=== PATIENT | male | born 1955 | race Caucasian/White ===

== ENCOUNTER 2016-10-20 13:49 | Outpatient (CLI) ==
[2013-05-16 16:23] VITALS: BMI 34.9
--- NOTE | 2016-10-20 15:05 | DI ---
EXAM: Four views of the cervical spine. History: Neck pain. Findings: No acute fracture or subluxation. No prevertebral soft tissue swelling. Mild multilevel degenerative disc space narrowing. Predental space is not widened. Prominent heart size is seen. Impression: No acute osseous abnormality. Mild degenerative disc disease.
== END 2016-10-20 13:50 | disposition home or self-care (01) ==
LOC: RAD 13:49
PROVIDERS: ATTEND Internal Medicine
DX: M54.2 Cervicalgia (principal)

== ENCOUNTER 2016-11-16 09:00 | Outpatient (RCR) ==
[2013-05-16 16:23] VITALS: BMI 34.9
--- NOTE | 2016-11-05 09:44 | RS.OPPTEV2 ---
Date of Note: 11/05/16 Visit #: 1 Date of Evaluation: 11/05/16 Payer Source: Insurance Date of Onset/Injury/Change in Status: 10/14/16 Surgery Performed?: No Treatment Diagnosis: Cervical radiculitis History of Condition/Mechanism of Injury:: Mr. Romero reports he has had several neck injuries in the past that has caused neck pain intermittently but it always resolved. He does notice that lifitng brings on neck pain. Then about a month ago he lifted a 5 gallon bucket of salt and felt pain in the lower cervical spine. This did not resolve so he sought medical intervention and has had several rounds of steroids. He has been on anti-inflammatories and has had steroid shots but that did not clear up the problem. He had x-rays that show mild degeneration. He has been in healthcare corporate account director who told him he had 4 bony osteophytes and a pinched nerve. The pain radiates to the right shoulder and distally into the right elbow. He is having constant pain now but the pain intensity is decreased by hydrocodine and ibuprofen. Prior Level of Function.....Patient was independent with: ADL's, Self Care, Work /Vocation, Caregiving, Ambulation/Mobility, Community Integration/Access Functional Limitations: Sleep, Lifting, Carrying, Community Access/Integration Treatment Side (optional): Right Medical History Medical History: Diabetes, Arthritis, Other Medical History Comments:: hypercholesterolemia Surgical History: Cholecystectomy Smoking Status: Never smoker Pain Assessment - Pain Description Pain Location: Right cervical pain, that radiates into the right upper trap and arm to the elbow. Pain Description: Burning, Sharp Pain Description: Constant Current Pain Intensity: 2/10 Worst Pain Intensity: 10/10 Functional Outcome Measure Neck Disability Index: 15 - G Codes & Severity Modifier G Codes & Modifier: NA Source of G Code score: NA Observation - Observation Posture: Rounded Shoulders Handedness: Right - ROM Cervical Extension: 5 (%) Cervical Left Lateral Flexion: 10 (%) Cervical Spine Range of Motion Limitations: Soft Tissue Tightness, Pain - Strength Cervical Extension: 5 Normal Cervical Flexion: 4+ Good + - Special Tests Foraminal Distraction: Relieves symptoms. Shoulder ROM: Bilaterally WFL's Shoulder Muscle Strength: Left WFL's - Right Shoulder Strength Right Shoulder Flexion: 4 Good Right Shoulder Abduction: 4 Good () Palpation Palpation Findings: Tenderness, Trigger Point (Significant muscle tightness throughout his upper body. Subscapularis TP present on R.) Sensation - Sensation Right Lower Extremity: Impaired Sensation Description: Burning - Traction Treatment Method: Manual Patient Position: Supine Amount of Force Applied: Mod Hold Time: 20 sec Duration of treatment: 10 minutes Traction Treatment Comment: Elimination of pain manual traction. Interventions - Exercise/Activities/Manual Therapy Exercises/Activities: NA Manual Therapy: A-O release, manual traction, right subscapularis trigger point mobilization, right scapular mobilization to improve movement and facilitate myofascial release. Total minutes of Manual Therapy: 25 minutes - Charges Total Direct Minutes: 25 Total Treatment Time: 65 Procedures billed for this date of service:: PT Aydeal (Med) & manual therapy X 2 Assessment Assessment: Cervical radiculitis on the right with decreased CROM and weakening of the RUE. Pain affecting his daily life and constant in nature. Patient Education: Education of diagnosis, Body/Joint mechanics, Activity Modification, Education of Plan of Care Rehab Potential: Good Short Term Goals Goal #1: Neck pain intermittent Goal to be met by: 11/20/16 Goal #2: Eliminate R arm pain. Goal to be met by: 11/20/16 Goal #3: Unawakened by pain. Goal to be met by: 11/20/16 Goal #4: Independent with basic HEP. Nurse Office Goals Goal #1: Neck pain 4/10 at worst and only on occasion. Goal to be met by: 12/04/16 Goal #2: CROM WFLs in all planes w/o pain. Goal to be met by: 12/04/16 Goal #3: RUE strength 5/5 Goal to be met by: 12/04/16 Goal #4: Independent with DC HEP. Goal to be met by: 12/04/16 Plan - Treatment to be Provided Procedures: Therapeutic Exercises, Therapeutic Activity, Manual Therapy, Massage , Patient Education Modalities: Electrical Stimulation, Ultrasound/Phonophoresis, Class IV Laser, Cryotherapy, Hot Packs, Mechanical Traction - Treatment Plan Frequency: 3 X week Duration: 4 weeks ORDER # VISITS AND/OR THROUGH DATE: 12/04/2016 - Treatment Code (1) Cervical radiculitis Comments: M54.12
--- NOTE | 2016-11-09 09:25 | RS.OPPTDN ---
Subjective Date of Note: 11/09/16 Visit #: 2 Date of Evaluation: 11/05/16 Payer Source: Insurance Treatment Diagnosis: Cervical radiculitis Current Subjective/complaints:: Patient reports sleeping better last night .He does have radiating pain in the R UE this morning. Pain Assessment - Pain Description Pain Location: Right cervical pain, that radiates into the right upper trap and arm to the elbow. Pain Description: Burning, Radiating, Sharp Current Pain Intensity: 2/10 - Treatment Modality: Ultrasound Parameters/Method Applied: 10 mins. @ 1.5 w/cm2 ,continuous mode to cervical / UT area. Patient Position: Sitting - Heat/Cryotherapy Treatment: Hot Pack (20 mins. prior to US and traction) - Traction Treatment Method: Mechanical, Intermittent, Cervical Patient Position: Supine Amount of Force Applied: 15# Hold Time: 30 secs. Rest Time: 5 secs. Duration of treatment: 10 mins. Interventions - Exercise/Activities/Manual Therapy Exercises/Activities: NA Total minutes of Exercise: 0 Manual Therapy: A-O release, manual traction, right subscapularis trigger point mobilization, right scapular mobilization to improve movement and facilitate myofascial release. 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 Patient Education: Education of diagnosis, Body/Joint mechanics, Home Exercise Program, Home Safety, Activity Modification, Education of Plan of Care Short Term Goals Goal #1: Neck pain intermittent Goal to be met by: 11/20/16 Goal #2: Eliminate R arm pain. Goal to be met by: 11/20/16 Goal #3: Unawakened by pain. Goal to be met by: 11/20/16 Goal #4: Independent with basic HEP. Cashier Goals Goal #1: Neck pain 4/10 at worst and only on occasion. Goal to be met by: 12/04/16 Goal #2: CROM WFLs in all planes w/o pain. Goal to be met by: 12/04/16 Goal #3: RUE strength 5/5 Goal to be met by: 12/04/16 Goal #4: Independent with DC HEP. Goal to be met by: 12/04/16 Plan PLAN OF CARE EXPIRES ON:: 12/04/16 ORDER # VISITS AND/OR THROUGH DATE: 12/04/2016 PLAN: Continue Plan of Care
--- NOTE | 2016-11-11 09:11 | RS.OPPTDN ---
Subjective Date of Note: 11/11/16 Visit #: 3 Date of Evaluation: 11/05/16 Payer Source: Insurance Treatment Diagnosis: Cervical radiculitis Current Subjective/complaints:: Reports his pain has been worse the last couple of days,and elevated pain this morning.We discussed the POC for today,will do more manual therapy for relief. Pain Assessment - Pain Description Pain Location: Right cervical pain, that radiates into the right upper trap and arm to the elbow. Pain Description: Burning, Radiating, Sharp Pain Description: Constant Current Pain Intensity: 8/10 - Heat/Cryotherapy Treatment: Hot Pack (20 mins. prior to manual therapy) Interventions - Exercise/Activities/Manual Therapy Exercises/Activities: NA Total minutes of Exercise: 0 Manual Therapy: 30 mins. total of deep tissue mobilization and accupressure to trigger points along the medial and lateral borders of the scpulae. Total minutes of Manual Therapy: 30 HOME EXERCISE PROGRAM: Cervical ROM in pain free ROM - Charges Total Direct Minutes: 30 Total Treatment Time: 50 Procedures billed for this date of service:: hp,ex 2 Assessment: Reports tingling into the R UE is present after session today,but the R scapular pain is eliminated at this time. He s attentive to recommendations for posture and cervical ROM. Patient Education: Education of diagnosis, Body/Joint mechanics, Home Exercise Program, Home Safety, Activity Modification, Education of Plan of Care Patient demonstrates compliance with HEP?: Yes Short Term Goals Goal #1: Neck pain intermittent Goal to be met by: 11/20/16 Progress towards Goal:: Progressing Goal #2: Eliminate R arm pain. Goal to be met by: 11/20/16 Progress towards Goal:: No Change Goal #3: Unawakened by pain. Goal to be met by: 11/20/16 Goal #4: Independent with basic HEP. [facility] Goals Goal #1: Neck pain 4/10 at worst and only on occasion. Goal to be met by: 12/04/16 Goal #2: CROM WFLs in all planes w/o pain. Goal to be met by: 12/04/16 Goal #3: RUE strength 5/5 Goal to be met by: 12/04/16 Goal #4: Independent with DC HEP. Goal to be met by: 12/04/16 Progress towards goal: Progressing Plan PLAN OF CARE EXPIRES ON:: 12/04/16 ORDER # VISITS AND/OR THROUGH DATE: 12/04/2016 PLAN: Continue Plan of Care
--- NOTE | 2016-11-13 09:13 | RS.OPPTDN ---
Subjective Date of Note: 11/13/16 Visit #: 4 Date of Evaluation: 11/05/16 Payer Source: Insurance Treatment Diagnosis: Cervical radiculitis Current Subjective/complaints:: Patient reports feeling much beter today. Pain Assessment - Pain Description Pain Location: Right cervical pain, that radiates into the right upper trap and arm to the elbow. Pain Description: Burning, Radiating, Sharp Current Pain Intensity: 4/10 - Heat/Cryotherapy Treatment: Hot Pack (20 mins. to R cervical/UT/scapula region) Interventions - Exercise/Activities/Manual Therapy Exercises/Activities: HEP review and return demo while on moist heat,of CROM in pain free range,including rotation.lateral flexion,chintucks. Total minutes of Exercise: 5 Manual Therapy: 30 mins. total of deep tissue mobilization and accupressure to trigger points along the medial and lateral borders of the scpulae. 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 Patient Education: Education of diagnosis, Body/Joint mechanics, Home Exercise Program, Home Safety, Activity Modification, Education of Plan of Care Patient demonstrates compliance with HEP?: Yes Short Term Goals Goal #1: Neck pain intermittent Goal to be met by: 11/20/16 Progress towards Goal:: Progressing Goal #2: Eliminate R arm pain. Goal to be met by: 11/20/16 Progress towards Goal:: Progressing Goal #3: Unawakened by pain. Goal to be met by: 11/20/16 Progress towards Goal:: Progressing Goal #4: Independent with basic HEP. Marriage Therapist Goals Goal #1: Neck pain 4/10 at worst and only on occasion. Goal to be met by: 12/04/16 (4/10 tody,but not yet consistent) Progress towards goal: Progressing Goal #2: CROM WFLs in all planes w/o pain. Goal to be met by: 12/04/16 Progress towards goal: Progressing Goal #3: RUE strength 5/5 Goal to be met by: 12/04/16 (N/A) Goal #4: Independent with DC HEP. Goal to be met by: 12/04/16 Progress towards goal: Progressing Plan PLAN OF CARE EXPIRES ON:: 12/04/16 ORDER # VISITS AND/OR THROUGH DATE: 12/04/2016 PLAN: Continue Plan of Care
--- NOTE | 2016-11-16 10:06 | RS.OPPTDN ---
Subjective Date of Note: 11/16/16 Visit #: 5 Date of Evaluation: 11/05/16 Payer Source: Insurance Treatment Diagnosis: Cervical radiculitis Current Subjective/complaints:: Reports Wednesday was good ,referring to his pain ,but yesterday his pain was "11/10",in the neck and R UE. Pain Assessment - Pain Description Pain Location: Right cervical pain, that radiates into the right upper trap and arm to the elbow. Pain Description: Burning, Radiating, Sharp Current Pain Intensity: 4/10 - Heat/Cryotherapy Treatment: Hot Pack (20 mins. prior to manual therapy) Interventions - Exercise/Activities/Manual Therapy Exercises/Activities: HEP review while on moist heat,of CROM in pain free range ,including rotation.lateral flexion,chintucks.AVOID excessive cervical extension if this increases his pain. Total minutes of Exercise: 0 Manual Therapy: 30 mins. total of deep tissue mobilization and accupressure to trigger points along the medial and lateral borders of the scpulae. Total minutes of Manual Therapy: 30 HOME EXERCISE PROGRAM: Cervical ROM in pain free ROM - Charges Total Direct Minutes: 30 Total Treatment Time: 50 Procedures billed for this date of service:: hp,manual therapy Assessment: Patient is progressing ,but the pain and radiculopathy varies.He reports relief after last weeks sessions,and Wednesday was good.He woke up Wednesday morning (yesterday) with intense pain.His elbow pain is present upon palpation of the common extensor tendon today,and he reports history of tennis elbow.He has functional shoulder/cervical ROM today withouty increase in pain.He is compliant to recommendations of the therapy staff. Patient Education: Education of diagnosis, Body/Joint mechanics, Home Exercise Program, Home Safety, Activity Modification, Education of Plan of Care Patient demonstrates compliance with HEP?: Yes Short Term Goals Goal #1: Neck pain intermittent Goal to be met by: 11/20/16 Progress towards Goal:: Progressing Comments:: elevated yesterday,but better today Goal #2: Eliminate R arm pain. Goal to be met by: 11/20/16 Progress towards Goal:: Progressing Comments:: elevated yesterday,but better today Goal #3: Unawakened by pain. Goal to be met by: 11/20/16 (not yet consistent) Progress towards Goal:: Progressing Goal #4: Independent with basic HEP. Progress towards Goal:: Partially Met Residential Goals Goal #1: Neck pain 4/10 at worst and only on occasion. Goal to be met by: 12/04/16 (4/10 tody,but not yet consistent) Progress towards goal: Progressing Goal #2: CROM WFLs in all planes w/o pain. Goal to be met by: 12/04/16 Progress towards goal: Progressing Goal #3: RUE strength 5/5 Goal to be met by: 12/04/16 (N/A) Goal #4: Independent with DC HEP. Goal to be met by: 12/04/16 Progress towards goal: Progressing Plan PLAN OF CARE EXPIRES ON:: 12/04/16 ORDER # VISITS AND/OR THROUGH DATE: 12/04/2016 PLAN: Continue Plan of Care
== END 2016-11-17 ==
PROVIDERS: ATTEND Physician Assistant
DX: M50.30 Other cervical disc degeneration, unspecified cervical region (principal); M54.12 Radiculopathy, cervical region

== ENCOUNTER 2016-12-04 08:00 | Outpatient (RCR) ==
[2013-05-16 16:23] VITALS: BMI 34.9
--- NOTE | 2016-11-20 15:34 | RS.OPPTDN ---
Subjective Date of Note: 11/20/16 Visit #: 6 Date of Evaluation: 11/05/16 Payer Source: Insurance Treatment Diagnosis: Cervical radiculitis Current Subjective/complaints:: Patient reports hurting more today,and he has "good days and bad days." Pain Assessment - Pain Description Pain Location: Right cervical pain, that radiates into the right upper trap and arm to the elbow. Pain Description: Radiating, Dull, Aching Pain Description: Constant Current Pain Intensity: 7/10 - Heat/Cryotherapy Treatment: Hot Pack (20 mins. to R shoulder/scapula,prior to manual therapy.) Interventions - Exercise/Activities/Manual Therapy Exercises/Activities: HEP review while on moist heat,of CROM in pain free range ,including rotation.lateral flexion,chintucks.AVOID excessive cervical extension if this increases his pain. Total minutes of Exercise: 0 Manual Therapy: 30 mins. total of deep tissue mobilization and accupressure to trigger points along the medial and lateral borders of the Rscapula. Total minutes of Manual Therapy: 30 HOME EXERCISE PROGRAM: Cervical ROM in pain free ROM - Charges Total Direct Minutes: 30 Total Treatment Time: 30 Procedures billed for this date of service:: hp,manual 2 Assessment: Patient has increased tenderness in the R lateral border of the scapula today.He reports his relief from PT sessions seems to be temporary this past week.We discussed to continue next week due to today being only his 6th session and we will re-assess his status at the end of next week. Patient Education: Education of diagnosis, Body/Joint mechanics, Home Exercise Program, Home Safety, Activity Modification, Education of Plan of Care Short Term Goals Goal #1: Neck pain intermittent Goal to be met by: 11/20/16 Progress towards Goal:: Progressing Goal #2: Eliminate R arm pain. Goal to be met by: 11/20/16 Progress towards Goal:: No Change Goal #3: Unawakened by pain. Goal to be met by: 11/20/16 Progress towards Goal:: No Change Goal #4: Independent with basic HEP. Retirement Goals Goal #1: Neck pain 4/10 at worst and only on occasion. Goal to be met by: 12/04/16 (7/10 today) Progress towards goal: Regressing Goal #2: CROM WFLs in all planes w/o pain. Goal to be met by: 12/04/16 Progress towards goal: Regressing Goal #3: RUE strength /5 Goal to be met by: 12/04/16 (N/A due to pain) Goal #4: Independent with DC HEP. Goal to be met by: 12/04/16 Plan PLAN OF CARE EXPIRES ON:: 12/04/16 ORDER # VISITS AND/OR THROUGH DATE: 12/04/2016 PLAN: Continue Plan of Care
--- NOTE | 2016-11-23 09:07 | RS.OPPTDN ---
Subjective Date of Note: 11/23/16 Visit #: 7 Date of Evaluation: 11/05/16 Payer Source: Insurance Treatment Diagnosis: Cervical radiculitis Current Subjective/complaints:: Reports he had ,"pretty good weekend".He took 3 ibuprofen,then later had to take one hydrocodone for relief. Pain Assessment - Pain Description Pain Location: Right cervical pain, that radiates into the right upper trap and arm to the elbow. Pain Description: Radiating, Dull, Aching Pain Description: Constant Current Pain Intensity: 3/10 - Heat/Cryotherapy Treatment: Hot Pack (20 mins. prior to manual therapy.) Interventions - Exercise/Activities/Manual Therapy Exercises/Activities: HEP review while on moist heat,of CROM in pain free range ,including rotation.lateral flexion,chintucks.AVOID excessive cervical extension if this increases his pain.Also return demo of scapular pro/ retraction. Total minutes of Exercise: 0 Manual Therapy: 30 mins. total of deep tissue mobilization and accupressure to trigger points along the medial and lateral borders of the Rscapula. HOME EXERCISE PROGRAM: Cervical ROM in pain free ROM - Charges Total Direct Minutes: 30 Total Treatment Time: 50 Procedures billed for this date of service:: hp,manual therapy 2 Assessment: Patient has less jay todyupon arrival.He has good erythmic response in the R upper traps. and scapula region after manual therapy.He has most tenderness in the R lateral border of the scapula again today.He continues to report pain in the R elbow at the common extensor tendon region ,but does not mimic tennis elbow symptoms when given resistance with wrist in extension.He understands this could be neuralgia from the cervical degeneration.He has functional cervical ROM today without increase in symptoms. Patient Education: Education of diagnosis, Body/Joint mechanics, Home Exercise Program, Home Safety, Activity Modification, Education of Plan of Care Short Term Goals Goal #1: Neck pain intermittent Goal to be met by: 11/20/16 Progress towards Goal:: Progressing Goal #2: Eliminate R arm pain. Goal to be met by: 11/20/16 Progress towards Goal:: No Change Goal #3: Unawakened by pain. Goal to be met by: 11/20/16 Progress towards Goal:: Progressing Goal #4: Independent with basic HEP. Skilled Nursing Goals Goal #1: Neck pain 4/10 at worst and only on occasion. Goal to be met by: 12/04/16 (3 today) Progress towards goal: Progressing Goal #2: CROM WFLs in all planes w/o pain. Goal to be met by: 12/04/16 Progress towards goal: Progressing Goal #3: RUE strength 5/5 Goal to be met by: 12/04/16 Progress towards goal: Progressing Goal #4: Independent with DC HEP. Goal to be met by: 12/04/16 Plan PLAN OF CARE EXPIRES ON:: 12/04/16 ORDER # VISITS AND/OR THROUGH DATE: 12/04/2016 PLAN: Continue Plan of Care
--- NOTE | 2016-11-25 14:01 | RS.OPPTDN ---
Subjective Date of Note: 11/25/16 Visit #: 8 Date of Evaluation: 11/05/16 Payer Source: Insurance Treatment Diagnosis: Cervical radiculitis Current Subjective/complaints:: Patient reports last session of manual therapy reduced his pain. States he had a good day yesterday as well. Pain Assessment - Pain Description Pain Location: Right cervical pain, that radiates into the right upper trap and arm to the elbow. Pain Description: Radiating, Dull, Aching Pain Description: Constant Current Pain Intensity: 3/10 - Heat/Cryotherapy Treatment: Hot Pack (x20min to the neck and right shoulder prior to MT. patient in sitting. ) Interventions - Exercise/Activities/Manual Therapy Exercises/Activities: [id number] Reviewed HEP. Assisted stretching of lateral flexion and levator scap. Isometric cervical retraction and isometric lateral flexion, all in neutral, multiple reps. Scap retraction and shoulder shrugs. Green theraband for bilateral shoulder ER. Blue theraband for scapular retraction. Total minutes of Exercise: 15mins Manual Therapy: 25 mins. Deep tissue mobilization and accupressure to bilateral trigger points along the medial and lateral borders of the right scapula and posterior shoulder joint. Total minutes of Manual Therapy: 25mins HOME EXERCISE PROGRAM: Cervical ROM in pain free ROM. Isometric cervical retraction and lateral flexion. Green theraband for bilateral shoulder ER. Blue theraband for scapular retraction. - Charges Total Direct Minutes: 40mins Total Treatment Time: 60mins Procedures billed for this date of service:: HP, MT2, EX Assessment: Patient responded well to manual therapy and will need to consistently work on HEP of postural strengthening. Patient Education: Body/Joint mechanics, Home Exercise Program, Home Safety Patient demonstrates compliance with HEP?: Yes Short Term Goals Goal #1: Neck pain intermittent Goal to be met by: 11/20/16 Progress towards Goal:: Progressing Goal #2: Eliminate R arm pain. Goal to be met by: 11/20/16 Progress towards Goal:: Progressing Goal #3: Unawakened by pain. Goal to be met by: 11/20/16 Progress towards Goal:: Progressing Goal #4: Independent with basic HEP. Goal to be met by: 11/20/16 Progress towards Goal:: Progressing Senior Care Goals Goal #1: Neck pain 4/10 at worst and only on occasion. Goal to be met by: 12/04/16 (3 today) Progress towards goal: Progressing Goal #2: CROM WFLs in all planes w/o pain. Goal to be met by: 12/04/16 Progress towards goal: Progressing Goal #3: RUE strength 5/5 Goal to be met by: 12/04/16 Progress towards goal: Progressing Goal #4: Independent with DC HEP. Goal to be met by: 12/04/16 Plan PLAN OF CARE EXPIRES ON:: 12/04/16 ORDER # VISITS AND/OR THROUGH DATE: 12/04/2016 PLAN: Continue Plan of Care (Continue and progress postural strengthening.)
--- NOTE | 2016-11-30 08:28 | RS.OPPTDN ---
Subjective Date of Note: 11/27/16 Visit #: 9 Date of Evaluation: 11/05/16 Payer Source: Insurance Treatment Diagnosis: Cervical radiculitis Current Subjective/complaints:: Patient reports feeling much better today,was reporting only temporary relief up to today.He has appt. at [facility] today for follow-up. Pain Assessment - Pain Description Pain Location: Right cervical pain, that radiates into the right upper trap and arm to the elbow. Pain Description: Dull, Aching Current Pain Intensity: minimal - Heat/Cryotherapy Treatment: Hot Pack (15 mins. prior to exercises) Interventions - Exercise/Activities/Manual Therapy Exercises/Activities: [id number] Reviewed HEP. Assisted stretching of lateral flexion and levator scap. Isometric cervical retraction and isometric lateral flexion, all in neutral, multiple reps. Scap retraction and shoulder shrugs. Total minutes of Exercise: 15 Manual Therapy: NA Total minutes of Manual Therapy: 0 HOME EXERCISE PROGRAM: Cervical ROM in pain free ROM. Isometric cervical retraction and lateral flexion. Green theraband for bilateral shoulder ER. Blue theraband for scapular retraction. - Charges Total Direct Minutes: 15 Total Treatment Time: 30 Procedures billed for this date of service:: hp,ex Assessment: Patient reports good progress this week.He reports no pain with isometrics in all directions for the C-spine today.He has functional ROM in the neck.The R elbow pain is intermittent . Patient Education: Education of diagnosis, Body/Joint mechanics, Home Exercise Program, Home Safety, Activity Modification, Education of Plan of Care Patient demonstrates compliance with HEP?: Yes Short Term Goals Goal #1: Neck pain intermittent Goal to be met by: 11/20/16 Progress towards Goal:: Progressing Goal #2: Eliminate R arm pain. Goal to be met by: 11/20/16 Progress towards Goal:: Progressing Goal #3: Unawakened by pain. Goal to be met by: 11/20/16 Progress towards Goal:: Progressing Goal #4: Independent with basic HEP. Goal to be met by: 11/20/16 Progress towards Goal:: Partially Met Dressmaker Helper Goals Goal #1: Neck pain 4/10 at worst and only on occasion. Goal to be met by: 12/04/16 Progress towards goal: Partially Met Goal #2: CROM WFLs in all planes w/o pain. Goal to be met by: 12/04/16 Progress towards goal: Partially Met Goal #3: RUE strength 5/5 Goal to be met by: 12/04/16 Progress towards goal: Progressing Goal #4: Independent with DC HEP. Goal to be met by: 12/04/16 Progress towards goal: Progressing Plan PLAN OF CARE EXPIRES ON:: 12/04/16 ORDER # VISITS AND/OR THROUGH DATE: 12/04/2016 PLAN: Continue Plan of Care
--- NOTE | 2016-11-30 09:15 | RS.OPPTDN ---
Subjective Date of Note: 11/30/16 Visit #: 10 Date of Evaluation: 11/05/16 Payer Source: Insurance Treatment Diagnosis: Cervical radiculitis Current Subjective/complaints:: Reports having a good weekend,plans to have MRI ,saw the PA @ [facility] last Wednesday.Patient asked about trying traction today,but feels it does not help,although he only had one session of it.He rpeoirts he is doing his HEP. Pain Assessment - Pain Description Pain Location: Right cervical pain, that radiates into the right upper trap and arm to the elbow. Pain Description: Dull, Aching Pain Description: Constant Current Pain Intensity: minimal - Heat/Cryotherapy Treatment: Hot Pack (20 mins. to cervical.R shoulder ,prior to manual therapy) Interventions - Exercise/Activities/Manual Therapy Exercises/Activities: HEP review while receiving manual therapy. Total minutes of Exercise: 0 Manual Therapy: NA Total minutes of Manual Therapy: 0 HOME EXERCISE PROGRAM: Cervical ROM in pain free ROM. Isometric cervical retraction and lateral flexion. Green theraband for bilateral shoulder ER. Blue theraband for scapular retraction. - Charges Total Direct Minutes: 25 Total Treatment Time: 45 Procedures billed for this date of service:: hp,manual therapy 2 Assessment: Patient reports relief after PT session ,but still reports this is temporary,and the duration of the relief varies dependent upon amount of daily activity.We discussed his D/C plan as he is approaching his rehab potential. Patient Education: Education of diagnosis, Body/Joint mechanics, Home Exercise Program, Home Safety, Activity Modification, Education of Plan of Care Patient demonstrates compliance with HEP?: Yes Short Term Goals Goal #1: Neck pain intermittent Goal to be met by: 11/20/16 Progress towards Goal:: No Change Goal #2: Eliminate R arm pain. Goal to be met by: 11/20/16 Progress towards Goal:: No Change Goal #3: Unawakened by pain. Goal to be met by: 11/20/16 Progress towards Goal:: Progressing Goal #4: Independent with basic HEP. Goal to be met by: 11/20/16 Progress towards Goal:: Partially Met Residential Goals Goal #1: Neck pain 4/10 at worst and only on occasion. Goal to be met by: 12/04/16 Progress towards goal: Partially Met Goal #2: CROM WFLs in all planes w/o pain. Goal to be met by: 12/04/16 Progress towards goal: Partially Met Goal #3: RUE strength 5/5 Goal to be met by: 12/04/16 Progress towards goal: Progressing Goal #4: Independent with DC HEP. Goal to be met by: 12/04/16 Progress towards goal: Progressing Plan PLAN OF CARE EXPIRES ON:: 12/04/16 ORDER # VISITS AND/OR THROUGH DATE: 12/04/2016 PLAN: Continue Plan of Care
--- NOTE | 2016-12-02 09:09 | RS.OPPTDN ---
Subjective Date of Note: 12/02/16 Visit #: 11 Date of Evaluation: 11/05/16 Payer Source: Insurance Treatment Diagnosis: Cervical radiculitis Current Subjective/complaints:: Patient reports the neck and shoulder feels better,but the R elbow is about the same. Pain Assessment - Pain Description Pain Location: Right cervical pain, that radiates into the right upper trap and arm to the elbow. Pain Description: Dull, Aching Pain Description: Constant Current Pain Intensity: not rated - Heat/Cryotherapy Treatment: Hot Pack (20 mins. tp cervical/R upper traps.) Interventions - Exercise/Activities/Manual Therapy Exercises/Activities: 10 mins. postural pullbacks with green theraband,scapular protraction/retraction,HEP review. Total minutes of Exercise: 10 Manual Therapy: 20 mins. soft tissue mobs. to R cervical/UT region. Total minutes of Manual Therapy: 20 HOME EXERCISE PROGRAM: Cervical ROM in pain free ROM. Isometric cervical retraction and lateral flexion. Green theraband for bilateral shoulder ER. Blue theraband for scapular retraction. 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 - Charges Total Direct Minutes: 30 Total Treatment Time: 50 Procedures billed for this date of service:: hp,ex ,manual therapy. Assessment: Patient reprts the neck and R shoulder pain is less today,but the R elbow pain is still present.The elbow pain does not increase with transformer assembler strength test. Patient Education: Activity Modification, Education of Plan of Care Patient demonstrates compliance with HEP?: Yes Short Term Goals Goal #1: Neck pain intermittent Goal to be met by: 11/20/16 Progress towards Goal:: Progressing Goal #2: Eliminate R arm pain. Goal to be met by: 11/20/16 Progress towards Goal:: No Change Goal #3: Unawakened by pain. Goal to be met by: 11/20/16 Progress towards Goal:: Progressing Goal #4: Independent with basic HEP. Goal to be met by: 11/20/16 Progress towards Goal:: Met Director Sales Support Goals Goal #1: Neck pain 4/10 at worst and only on occasion. Goal to be met by: 12/04/16 Progress towards goal: Partially Met Goal #2: CROM WFLs in all planes w/o pain. Goal to be met by: 12/04/16 Progress towards goal: Partially Met Goal #3: RUE strength 5/5 Goal to be met by: 12/04/16 Progress towards goal: Progressing Goal #4: Independent with DC HEP. Goal to be met by: 12/04/16 Progress towards goal: Progressing Plan PLAN OF CARE EXPIRES ON:: 12/04/16 ORDER # VISITS AND/OR THROUGH DATE: 12/04/2016 PLAN: Continue Plan of Care
--- NOTE | 2016-12-04 09:19 | RS.OPPTDC ---
Date of Discharge: 12/04/16 Date of Evaluation: 11/05/16 Number of Visits: 12 Treatment Diagnosis: Cervical radiculitis Current Level of Function: Independent in community. Current Complaints/Gains: Patient appreciative of his care,but still feels the relief is temporary.He is aware of D/C plan today. Pain Assessment - Pain Description Pain Location: Right cervical pain, that radiates into the right upper trap and arm to the elbow. Pain Description: Dull, Aching Pain Description: intermittent Current Pain Intensity: not rated Functional Outcome Measure Neck Disability Index: 13 - G Codes & Severity Modifier G Codes & Modifier: NA Source of G Code score: NA Observation - Observation Posture: Forward Head, Rounded Shoulders - Heat/Cryotherapy Treatment: Hot Pack (20 mins. prior to manual therapy) Interventions - Exercise/Activities/Manual Therapy Exercises/Activities: HEP review. Total minutes of Exercise: 0 Manual Therapy: 30 mins. soft tissue mobs. to R cervical/UT region. Total minutes of Manual Therapy: 30 HOME EXERCISE PROGRAM: Cervical ROM in pain free ROM. Isometric cervical retraction and lateral flexion. Green theraband for bilateral shoulder ER. Blue theraband for scapular retraction. - Charges Total Direct Minutes: 30 Total Treatment Time: 50 Procedures billed for this date of service:: hp,manual 2 Assessment Assessment: Rehab potential met,has good understanding of HEP and pain management.He is scheduled today for MRI as the therapy is only giving him temporary relief. Patient Education: Education of diagnosis, Body/Joint mechanics, Home Exercise Program, Home Safety, Activity Modification, Education of Plan of Care Rehab Potential: Good Short Term Goals Goal #1: Neck pain intermittent Goal to be met by: 11/20/16 Progress towards Goal:: Met Goal #2: Eliminate R arm pain. Goal to be met by: 11/20/16 (elbow pain present) Progress towards Goal:: Partially Met Goal #3: Unawakened by pain. Goal to be met by: 11/20/16 Progress towards Goal:: Partially Met Goal #4: Independent with basic HEP. Goal to be met by: 11/20/16 Progress towards Goal:: Met Public Finance Specialist Goals Goal #1: Neck pain 4/10 at worst and only on occasion. Goal to be met by: 12/04/16 Progress towards goal: Met Goal #2: CROM WFLs in all planes w/o pain. Goal to be met by: 12/04/16 Progress towards goal: Met Goal #3: RUE strength 5/5 Goal to be met by: 12/04/16 Progress towards goal: Partially Met Goal #4: Independent with DC HEP. Goal to be met by: 12/04/16 Progress towards goal: Progressing Plan Reason for Discharge:: Maximum Potential Met
== END 2016-12-15 ==
PROVIDERS: ATTEND Physician Assistant
DX: M50.30 Other cervical disc degeneration, unspecified cervical region (principal); M54.12 Radiculopathy, cervical region

== ENCOUNTER 2016-12-04 12:03 | Outpatient (CLI) ==
[2013-05-16 16:23] VITALS: BMI 34.9
--- NOTE | 2016-12-04 14:51 | MRI ---
EXAM: MRI cervical spine without IV contrast. DATE: 12/04/2016. HISTORY: Cervical radiculopathy. TECHNIQUE: Sagittal and axial T1W and T2W sequences of the cervical spine along with sagittal IR an d coronal T2W sequences were obtained using 1.2 Fay magnet. No IV contrast. COMPARISON: C-spine series 10/30/2016. FINDINGS: Patient's head is canted to the left, causing slight angulation of the upper C-spine. No acute c-spine fracture, subluxation, osseous malignancy, or jumped facet is identified. Cervical v ertebra are normal in height. Bone marrow signal is uniform. Small anterior osteophytes are presen t at several levels. Mild C4-5 and C5-6 disc space narrowing is detected. Cervical and upper thora cic spinal cord reveals no syrinx, cord edema, myelomalacia, or neoplasm. Visible brainstem is unremarkable. Cerebellar atrophy is noted. No mastoid effusion / mastoiditis is demonstrated. The thyroid, submandibular, and parotid glands reveal no neoplasm. Trachea, laryn x, and epiglottis are normal. No suspicious neck mass, cervical lymphadenopathy, apical lung mass, pneumonia, or pleural effusion is identified. Segmental analysis: C2-3: No disc protrusion or central stenosis. Mild right foraminal narrowing is due to uncinate hy pertrophy. C3-4: Broad posterior disc bulge (2.2 mm AP) does not contact the cord. Canal is 9 mm AP. Mild bi lateral foraminal stenoses due to uncinate hypertrophy and mild facet arthropathy. C4-5: Minor posterior disc bulge (1.4 mm AP) does not contact the cord. Canal is 10.5 mm AP. Each foramen is patent. There is minor facet arthropathy. C5-6: Minimal posterior disc bulge (1.2 mm AP) does not contact the cord. Canal is 10.9 mm AP. Ea ch foramen is patent. There is mild left facet arthropathy. C6-7: Broad posterior disc/osteophyte complex (3.5 mm AP) does not contact the cord. Canal is 9.4 mm AP. Mild/moderate right and marked left foraminal stenoses are due to uncinate hypertrophy C7-T1: Normal. T1-2: Normal. IMPRESSIONS: 1. C-spine mild spondylosis, mild facet arthropathy, and multilevel DDD 2. Mild central canal stenosis at C3-4 and C6-7. 3. Multilevel foraminal stenosis, especially C6-7. 4. Mild cerebellar atrophy.
== END 2016-12-04 12:04 | disposition home or self-care (01) ==
LOC: RAD 12:03
PROVIDERS: ATTEND Physician Assistant Surgical
DX: M54.12 Radiculopathy, cervical region (principal)

== ENCOUNTER 2018-04-05 06:50 | Day surgery (SDC) ==
[2013-05-16 16:23] VITALS: BMI 34.9
[2018-04-05] MEDS ORDERED: LIDOCAINE 1% 20 ML MDV ID STA (07:20)
[2018-04-05] MEDS ORDERED: DIPRIVAN 20 ML VIAL IVP ONE (08:00)
[2018-04-05] MEDS ORDERED: VERSED ONE (08:00)
[2018-04-05 09:21] VITALS: BP 148/86; TEMP 97.1
--- NOTE | 2018-04-06 07:03 | OP ---
INDICATIONS FOR PROCEDURE: 62-year-old gentleman presents for screening colonoscopy exam. MEDICATIONS: SEE ANESTHESIA NOTES. PROCEDURE: COLONOSCOPY, SNARE POLYPECTOMY. REPORT: The risks, benefits, alternatives and limitations were discussed in detail with the patient. Informed consent was obtained. After adequate sedation was achieved, a digital rectal exam revealed good tone, no masses. The colonoscope was introduced into the rectum and advanced under direct visual guidance to the cecum. The cecum was identified by the appendiceal orifice and IC valve. I then slowly withdrew the scope in a circumferential manner examining the mucosa quite carefully. I looked on the proximal and distal side of folds and flexures as best as possible. In the distal ascending colon there was a semi sessile 5 mm polyp that I removed by snare technique. The remaining colon was unremarkable including on retroflex view of the anal canal. The prep was adequate. The withdrawal time was 10 minutes and 54 seconds. The patient tolerated the procedure well with stable vital signs and pulse oximetry throughout. IMPRESSION: 1. SMALL POLYP REMOVED RECOMMENDATIONS: 1. High fiber diet. 2. Office visit as needed. 3. Await pathology results. If everything is benign as expected, I recommend colonoscopy examination again in 5 years, sooner if there are any signs or symptoms to indicate otherwise. cc: Dr. Shawn SINGLETARY
== END 2018-04-05 09:17 | disposition home or self-care (01) ==
LOC: SURG 06:50
PROVIDERS: ATTEND Internal Medicine Gastroenterology
DX: Z12.11 Encounter for screening for malignant neoplasm of colon (principal); K63.5 Polyp of colon
CPT/HCPCS: 82962

== ENCOUNTER 2018-04-19 19:47 | Emergency (ER) ==
[2018-04-19 19:53] VITALS: BMI 37.0
[2018-04-19] MEDS ORDERED: DEMEROL 50 MG/ML VIAL IM STA (20:38)
[2018-04-19] MEDS ORDERED: ZOFRAN 4 MG/2 ML IM STA (20:38)
--- NOTE | 2018-04-19 21:01 | ED.PDOC ---
General ED Provider: Dr. KUSH COTTON Chief Complaint: Abdominal Pain Stated Complaint: Patirea came for the right side abdominal pain, He had Recent colonoscopy at [facility], per patient polyp was removed. he started having some pain for 1 week, seen by PMD on wednesday assumed the pain is from GERD. medication was increased. but the pain got worse today came for the help. Time Seen by Physician: 20:58 Mode of Arrival: Walk-In Information Source: Patient Primary Care Provider: MILAGROS MIRELES Nursing and Triage Documentation Reviewed and Agree: Yes Does patient meet sepsis criteria?: No If yes, has appropriate treatment been initiated?: No System Inflammatory Response Syndrome: Not Applicable Sepsis Protocol: For patient's 13 years and over: Temp is 96.8 and below OR 101 and greater Pulse >90 BPM Resp >20/minute Acutely Altered Mental Status Are patient's symptoms suggestive of a new infection, such as: -Pneumonia -Skin, Soft Tissue -Endocarditis -UTI -Bone, Joint Infection -Implantable Device -Acute Abdominal Infection -Wound Infection -Meningitis -Blood Stream Catheter Infection -Unknown GI Complaint Exam - Abdominal Pain Complaint/Exam Onset: Gradual Symptoms Are: Still present Timing: Constant Initial Severity: Severe Current Severity: Severe Location of Pain: RUQ, RLQ Radiates To: Reports: Flank Character: Reports: Dull, Aching, Throbbing Aggravating: Reports: Movement, Food, Deep breaths Alleviating: Reports: None Associated Signs and Symptoms: Reports: Nausea. Denies: Diaphoresis, Fever, Cough, Chest pain, Dizziness, Back pain, Constipation, Blood in stool, Dysuria, Urinary frequency, Decreased urine output, Decreased appetite, Discharge, Vomiting, Diarrhea, Decreased activity AAA Risk Factors: Reports: None Cardiac Risk Factors: Reports: Hypertension, Elevated lipids Testicular Torsion Risk Factors: Reports: None Surgical Obstruction Risk Factors: Reports: None Related Surgical History: Reports: None Abdominal Findings: Present: Abdominal distention. Absent: Pulsatile mass, Unequal femoral pulses Differential Diagnoses: Constipation, Diverticulitis Review of Systems - Review Of Systems Constitutional: Reports: Weakness Eyes: Reports: No symptoms Ears, Nose, Mouth, Throat: Reports: No symptoms Respiratory: Reports: No symptoms Cardiac: Reports: No symptoms GI: Reports: Abdomen distended, Abdominal pain : Reports: No symptoms Musculoskeletal: Reports: No symptoms Skin: Reports: No symptoms Neurological: Reports: No symptoms Endocrine: Reports: No symptoms Hematologic/Lymphatic: Reports: No symptoms All Other Systems: Reviewed and Negative Past Medical History - Past Medical History Previously Healthy: Yes Endocrine: Reports: DM 2, Dyslipidemia Cardiovascular: Reports: Hypertension Respiratory: Reports: None Hematological: Reports: None Gastrointestinal: Reports: GERD Genitourinary: Reports: None Neuro/Psych: Reports: None Musculoskeletal: Reports: None Cancer: Reports: None - Surgical History General Surgical History: Reports: Cholecystectomy - Family History Family History: Reports: None - Social History Smoking Status: Never smoker Hx Substance Use: No Alcohol Screening: None Physical Exam - Physical Exam Appearance: Ill-appearing, Obese Pain Distress: Severe Eyes: CARMEN, EOMI ENT: Ears normal, Nose normal, Oropharynx normal Respiratory: Airway patent, Breath sounds clear, Breath sounds equal, Respirations nonlabored Cardiovascular: RRR, Pulses normal, No rub, No murmur GI/: Tender, Bowel sounds hypoactive Musculoskeletal: Normal strength, ROM intact, No edema, No calf tenderness Skin: Warm, Dry, Normal color Neurological: Sensation intact, Motor intact, Reflexes intact, Cranial nerves intact, Alert, Oriented Psychiatric: Affect appropriate, Mood appropriate Interpretation - Radiology Interpretation Radiology Interpretation By: Radiologist Radiology Results: Positive (acute pancreatitis) Re-Evaluation - Re-Evaluation Time of Re-Evaluation: 22:24 Status: Improved Physician Notification - Case Discussed Time of Notification: 22:24 (DR Mireles, suggested admit at [facility]) Time of Notification: 22:57 (Dr Coronado, accepted) Critical Care Note - Critical Care Note Total Time (mins): 30 Course - Course Hematology/Chemistry: 04/19/18 21:00 04/19/18 21:00 Orders, Labs, Meds: Lab Review 04/19/18 04/19/18 21:00 21:00 WBC 9.89 RBC 6.13 H Hgb 16.2 Hct 49.5 MCV 80.8 MCH 26.4 L MCHC 32.7 RDW Coeff of Lilibeth 14.5 Plt Count 278 Immature Gran % (Auto) 0.3 Neut % (Auto) 74.5 Lymph % (Auto) 14.8 Baldwin % (Auto) 8.2 Eos % (Auto) 1.6 Baso % (Auto) 0.6 Immature Gran # (Auto) 0.0 Neut # (Auto) 7.4 H Lymph # (Auto) 1.5 Baldwin # (Auto) 0.8 Eos # (Auto) 0.2 Baso # (Auto) 0.1 Sodium 140 Potassium 4.7 Chloride 102 Carbon Dioxide 27 Anion Gap 15.7 BUN 13 Creatinine 0.78 Estimated GFR (MDRD) 101.00 BUN/Creatinine Ratio 16.66 Glucose 190 H Calcium 9.1 Total Bilirubin 0.9 AST 18 ALT 26 Alkaline Phosphatase 89 Total Protein 6.9 Albumin 3.6 Globulin 3.3 Albumin/Globulin Ratio 1.09 Amylase 57 Lipase 113 H Orders Category Date Time Status ED IV/MEDIPORT/POWERPORT .ONCE EMERGENCY 04/19/18 22:44 Active AMYLASE Stat LAB 04/19/18 21:00 Completed CBC W/ AUTO DIFF Stat LAB 04/19/18 21:00 Completed COMPREHENSIVE METABOLIC PANEL Stat LAB 04/19/18 21:00 Completed LIPASE Stat LAB 04/19/18 21:00 Completed UA [URINALYSIS C & S IF INDICATED] Stat LAB 04/19/18 22:43 Uncollected 0.9 % Sodium Chloride [Saline Flush] MEDS 04/19/18 22:44 Ordered 1 syr IVF PRN PRN Dextrose 5 % and 0.9 % NaCl [Dextrose 5%-Ns IV Solution MEDS 04/19/18 22:44 Active ] 1,000 ml IV 70 mls/hr Meperidine HCl/Pf [Demerol 50 mg/ml Vial] MEDS 04/19/18 20:38 Discontinued 50 mg IM ONCE STA Ondansetron HCl/Pf [Zofran 4 mg/2 ml] MEDS 04/19/18 20:38 Discontinued 4 mg IM ONCE STA CT ABDOMEN/PELVIS WO CONTRAST Stat RADS 04/19/18 20:38 Completed Medications Generic Name Dose Route Start Last Admin Trade Name Freq PRN Reason Stop Dose Admin Dextrose/Sodium Chloride 1,000 mls @ 70 mls/hr 04/19/18 22:44 Dextrose 5%-Ns Iv Solution IV 04/20/18 13:01 .[id number] STA Sodium Chloride 1 syr 04/19/18 22:44 Saline Flush IVF PRN PRN To flush IV Discontinued Medications Generic Name Dose Route Start Last Admin Trade Name Freq PRN Reason Stop Dose Admin Meperidine HCl 50 mg 04/19/18 20:38 04/19/18 21:02 Demerol 50 Mg/Ml Vial IM 04/19/18 20:39 50 mg ONCE STA Administration Ondansetron HCl 4 mg 04/19/18 20:38 04/19/18 21:01 Zofran 4 Mg/2 Ml IM 04/19/18 20:39 4 mg ONCE STA Administration Vital Signs: Temp Pulse Resp BP Pulse Ox 04/19/18 19:49 97.0 F L 66 20 172/71 H 93 L Departure - Departure Time of Disposition: 21:13 Disposition: TSF OTHER Discharge Problem: Acute pancreatitis Qualifiers: Pancreatitis type: other Acute pancreatitis complication: no infection or necrosis Qualified Code(s): K85.80 - Other acute pancreatitis without necrosis or infection Instructions: Pancreatitis (ED) Condition: Stable Pt referred to PMD for follow-up: No IPMP verified?: No Allergies/Adverse Reactions: Allergies morphine Adverse Reaction (Verified 04/19/18 19:54) Home Medications: Ambulatory Orders Aspirin [Aspirin Chewable] 81 mg PO DAILY 05/16/13 Multivitamin,Ther and Minerals [Vitamin and Minerals] 1 each PO DAILY 05/16/13 Olmesartan/Hydrochlorothiazide [Benicar Hct 20-12.5 mg Tablet] 1 each PO DAILY 05/16/13 Omeprazole [Prilosec] 40 mg PO BID 05/16/13 Sitagliptin Phos/Metformin HCl [Janumet 50-1,000 mg Tablet] 1 each PO BID Furosemide [Lasix] 1 tab PO DAILY 04/01/18 Gabapentin 200 mg PO BEDTIME 04/01/18 Insulin Detemir [Levemir] 77 unit SUBCUT BID 04/01/18 Metoprolol/Hydrochlorothiazide [Metoprolol-Hctz 100-25 mg Tab] 1 tab PO DAILY Potassium Chloride [Klor-Con 10] 10 meq PO DAILY 04/01/18 Disposition Discussed With: Patient, Family
--- NOTE | 2018-04-19 21:08 | CT ---
EXAM: CT scan abdomen pelvis without contrast HISTORY: Right flank pain COMPARISON: CT scan abdomen pelvis 05/16/2013 or FINDINGS: Contiguous axial images obtained from lung bases to the symphysis pubis without contrast u tilizing 3-mm collimation. Sagittal and coronal reconstructions were imaged and reviewed.. Visualiz ed lung bases are clear. Fatty infiltration is of throughout the liver. There has been prior cholec ystectomy. The spleen and adrenal glands have normal unenhanced CT appearance. Atherosclerotic prince ges are seen involving the aorta without aneurysm formation. The kidneys morphologically normal. In flammatory changes are seen relation to the pancreatic head and uncinate process compatible with mild pancreatitis. There is normal appendix. The prostate gland is normal in size. The bladder is unre markable.. Bone windows reveals no evidence of lytic or blastic lesions. IMPRESSION: Findings compatible with pancreatitis involving pancreatic head and uncinate process. Fatty liver. ASVD without aneurysm. Normal appendix
[2018-04-19] MEDS ORDERED: DEXTROSE 5%-NS IV SOLUTION 1,000 ML IV STA (22:44)
[2018-04-20 00:24] VITALS: BP 154/81; TEMP 97.9
== END 2018-04-19 23:58 | disposition short-term general hospital (02) ==
LOC: ED 19:47
DX: K85.80 Other acute pancreatitis without necrosis or infection (principal); I10 Essential (primary) hypertension; R53.1 Weakness; K21.9 Gastro-esophageal reflux disease without esophagitis; E11.9 Type 2 diabetes mellitus without complications; E78.5 Hyperlipidemia, unspecified; Z98.890 Other specified postprocedural states; Z79.899 Other long term (current) drug therapy
CPT/HCPCS: 36415; 80053; 81001; 82150; 83690; 85025; 96360; 96372; 99285

== ENCOUNTER 2018-04-20 | Outpatient (CLI) ==
[2018-04-19 19:53] VITALS: BMI 37.0
== END 2018-04-20 00:19 | disposition short-term general hospital (02) ==
LOC: AMBL
PROVIDERS: ATTEND Family Medicine
DX: R10.9 Unspecified abdominal pain (principal); K85.90 Acute pancreatitis without necrosis or infection, unspecified

== ENCOUNTER 2021-08-25 12:30 | Observation (INO) ==
[2021-08-25 12:58] LABS: BORDETELLA PARAPERTUSSIS (PCR) NOT DETECTED (NOT DETECT); BORDETELLA PERTUSSIS (PCR) NOT DETECTED (NOT DETECT); CHLAMYDIA PNEUMONIAE (PCR) NOT DETECTED (NOT DETECT); CORONAVIRUS 229E (PCR) NOT DETECTED (NOT DETECT); CORONAVIRUS HKU1 (PCR) NOT DETECTED (NOT DETECT); CORONAVIRUS NL63 (PCR) NOT DETECTED (NOT DETECT); CORONAVIRUS OC43 (PCR) NOT DETECTED (NOT DETECT); HUMAN METAPNEUMOVIRUS (PCR) NOT DETECTED (NOT DETECT); HUMAN RHINOVIRUS/ENTEROV (PCR) NOT DETECTED (NOT DETECT); INFLUENZA B (PCR) NOT DETECTED (NOT DETECT); MYCOPLASMA PNEUMONIAE (PCR) NOT DETECTED (NOT DETECT); PARAINFLUENZA VIRUS 1 (PCR) NOT DETECTED (NOT DETECT); PARAINFLUENZA VIRUS 2 (PCR) NOT DETECTED (NOT DETECT); PARAINFLUENZA VIRUS 3 (PCR) NOT DETECTED (NOT DETECT); PARAINFLUENZA VIRUS 4 (PCR) NOT DETECTED (NOT DETECT); RESPIRATORY SYNCYTIAL V (PCR) NOT DETECTED (NOT DETECT); SARS_COV_2 (PCR) NOT DETECTED (NOT DETECT)
[2021-08-25 13:46] LABS: ADENOVIRUS (PCR) NOT DETECTED (NOT DETECT)
[2021-08-25] MEDS ORDERED: NITROSTAT SL PRN (15:33)
[2021-08-25] MEDS ORDERED: ATROPINE SULFATE PFS IVP PRN (15:33)
[2021-08-25 15:57] LABS: BASOPHILS # (AUTO) 0.1 K/uL (0-0.2); BASOPHILS % (AUTO) 0.8 % (0.0-3.0); EOSINOPHILS # (AUTO) 0.2 K/ul (0.0-0.7); EOSINOPHILS % (AUTO) 2.9 % (0.0-7.0); HEMATOCRIT 40.7 % (42.0-52.0); HEMOGLOBIN 13.7 g/dl (14.0-18.0); IMMATURE GRANULOCYTE % (AUTO) 0.5 % (0.0-5.0); LYMPHOCYTES # (AUTO) 1.1 K/uL (0.60-3.4); LYMPHOCYTES % (AUTO) 17.4 (10.0-50.0); MEAN CORPUSCULAR HGB CONC 33.7 (31.8-35.4); MEAN CORPUSCULAR VOLUME 86.2 fl (80.0-94.0); MONOCYTES # (AUTO) 0.6 K/uL (0.4-2.0); MONOCYTES % (AUTO) 9.6 (0-10); NEUTROPHILS # (AUTO) 4.5 K/ul (2.0-6.9); NEUTROPHILS % (AUTO) 68.8 % (42.2-75.2); PLATELET COUNT 268 10^3/uL (140-440); RDW COEFFICIENT OF VARIATION 13.2 % (11.6-14.8); RED BLOOD COUNT 4.72 10^6/ul (4.70-6.10); WHITE BLOOD COUNT 6.55 K/ul (4.2-10.2)
[2021-08-25 16:11] LABS: ALANINE AMINOTRANSFERASE 38.8 U/L (0-50); ALBUMIN 4.34 g/dL (3.5-5.0); ALKALINE PHOSPHATASE 143.7 U/L (56-119); ASPARTATE AMINO TRANSFERASE 36.8 U/L (17-59); BILIRUBIN,TOTAL 0.57 mg/dL (0.2-1.3); BLOOD UREA NITROGEN 25.5 mg/dL (9-20); CALCIUM 8.92 mg/dL (8.4-10.2); CARBON DIOXIDE 25.8 mmol/L (22-30.0); CREATINE KINASE 74.3 U/L (55-170); CREATININE 0.83 mg/dL (0.60-1.10); GLUCOSE 184.1 mg/dL (74-106); POTASSIUM 4.46 mmol/L (3.5-5.1); SODIUM 140.5 mmol/L (134.5-145); TOTAL PROTEIN 7.2 g/dL (6.3-8.2)
[2021-08-25 16:22] VITALS: BMI 39.0
[2021-08-25 16:23] LABS: TROPONIN I < 0.012 ng/ml (0.0000-0.120)
--- NOTE | 2021-08-25 16:53 | US ---
EXAM: Carotid duplex ultrasound. HISTORY: Syncope. COMPARISON: None. FINDINGS: Evaluation of the right and left carotid and vertebral arteries was performed using killian scale, color doppler, and spectral doppler. Right cervical carotid: Mild atherosclerotic plaque in the right internal carotid artery. Peak systo lic velocity right ICA 75.3cm/s. Velocity right CCA 69.0cm/s. Velocity ratio right ICA:CCA 1.1. Left cervical carotid: Mild atherosclerotic plaque in the left internal carotid artery. Peak systoli c velocity left ICA 92.5cm/s. Velocity left CCA 86.2cm/s. Velocity ratio left ICA:CCA 1.1. Vertebral arteries: Normal, antegrade flow. IMPRESSION: Mild atherosclerosis of the carotid arteries bilaterally. No evidence of significant stenosis of the internal carotid arteries. Normal flow in the right and left vertebral arteries.
--- NOTE | 2021-08-25 17:20 | DI ---
EXAM: Chest two view. HISTORY: Cough. COMPARISON: None. FINDINGS: Heart is upper limits normal and pulmonary vascularity within normal limits. The lungs ar e satisfactory inflated with no active pulmonary infiltrate seen. Chronic appearing increased inters titial lung markings. Granulomatous calcifications are seen.No acute bone abnormality. IMPRESSION: Evidence of chronic lung findings with no active cardiac or pulmonary process seen.
--- NOTE | 2021-08-25 17:22 | DI ---
EXAM: Five views cervical spine. HISTORY: Back pain. FINDINGS: There is limited visualization of the dens on the open mouth views secondary to overlying t ooth artifact. There is normal alignment of the cervical vertebral bodies and facets. The vertebral body heights are maintained. No evidence of fracture in the visualized portion of the cervical spin e. There is multilevel disc space narrowing. The C1-2 relationship is maintained. No prevertebral soft tissue abnormality. Impression: Limited exam as described. No evidence of fracture in the visualized portion of the cervical spine. Normal alignment of the cervical spine with degenerative changes as described.
--- NOTE | 2021-08-25 17:25 | CT ---
EXAM: CT of the head with and without contrast History: Syncope. Technique: Multiplanar CT images through the head were obtained with and without the administration of IV contrast. FINDINGS: The visualized paranasal sinuses and mastoid air cells are clear. No acute calvarial abno rmalities. Intracranially the ventricular and cisternal spaces are normal in size, shape and configuration for a patient of this age. No dominant mass or midline shift. No hydrocephalous. No acute intracranial hemorrhage or abnormal extraaxial fluid collections. No abnormal contrast enhancement. Impression: Normal study All CT scans are performed using dose optimization techniques as appropriate to the performed exam an d include at least one of the following: Automated exposure control, adjustment of the mA and/or kV according t o size, and the use of iterative reconstruction technique.
[2021-08-25] MEDS ORDERED: GLUCOPHAGE PO SCH (17:30)
[2021-08-25 18:08] LABS: BILIRUBIN,URINE Negative (NEGATIVE); CLARITY,URINE Clear (CLEAR); COLOR,URINE Yellow (YELLOW); GLUCOSE, URINE (UA) 2+ (NEGATIVE); KETONES,URINE Negative (NEGATIVE); LEUKOCYTE ESTERASE ,URINE Negative (NEGATIVE); NITRITE,URINE Negative (NEGATIVE); PH,URINE 5.5 (5-9); PROTEIN,URINE Negative (NEGATIVE); URINE, BLOOD Negative (NEGATIVE)
[2021-08-25 18:11] LABS: SQUAMOUS EPITHELIAL CELL,UR NOT PRESENT (0-5)
[2021-08-25] MEDS: NEURONTIN PO SCH (20:55)
[2021-08-25] MEDS: ELIQUIS PO SCH (20:56)
[2021-08-25] MEDS: LOPRESSOR PO SCH (20:56)
[2021-08-25] MEDS: LASIX TAB PO SCH (20:57)
[2021-08-25] MEDS: HUMULIN R SUBCUT PRN (20:58)
[2021-08-25] MEDS: LEVEMIR SUBCUT SCH (20:59)
[2021-08-25] MEDS ORDERED: ZANAFLEX PO SCH (21:00)
[2021-08-25] MEDS ORDERED: LIPITOR PO SCH (21:00)
[2021-08-25] MEDS ORDERED: PRILOSEC PO SCH (21:00)
[2021-08-25] MEDS: TYLENOL PO PRN (21:47)
[2021-08-26 00:03] LABS: CREATINE KINASE 67.7 U/L (55-170)
[2021-08-26 00:16] LABS: TROPONIN I 0.02 ng/ml (0.0000-0.120)
[2021-08-26 05:21] LABS: BASOPHILS % (AUTO) 0.7 % (0.0-3.0); EOSINOPHILS # (AUTO) 0.2 K/ul (0.0-0.7); EOSINOPHILS % (AUTO) 3.9 % (0.0-7.0); HEMATOCRIT 40.1 % (42.0-52.0); IMMATURE GRANULOCYTE % (AUTO) 0.4 % (0.0-5.0); LYMPHOCYTES # (AUTO) 1.2 K/uL (0.60-3.4); LYMPHOCYTES % (AUTO) 26.3 (10.0-50.0); MEAN CORPUSCULAR HEMOGLOBIN 28.4 pg (27.0-31.0); MEAN CORPUSCULAR HGB CONC 32.4 (31.8-35.4); MEAN CORPUSCULAR VOLUME 87.6 fl (80.0-94.0); MONOCYTES # (AUTO) 0.5 K/uL (0.4-2.0); MONOCYTES % (AUTO) 10.2 (0-10); NEUTROPHILS # (AUTO) 2.7 K/ul (2.0-6.9); NEUTROPHILS % (AUTO) 58.5 % (42.2-75.2); PLATELET COUNT 246 10^3/uL (140-440); RDW COEFFICIENT OF VARIATION 13.4 % (11.6-14.8); RED BLOOD COUNT 4.58 10^6/ul (4.70-6.10)
[2021-08-26 05:26] VITALS: BP 115/73; TEMP 97.6
[2021-08-26 05:35] LABS: ALANINE AMINOTRANSFERASE 37.6 U/L (0-50); ALBUMIN 4.12 g/dL (3.5-5.0); ASPARTATE AMINO TRANSFERASE 39.8 U/L (17-59); BILIRUBIN,TOTAL 0.53 mg/dL (0.2-1.3); BLOOD UREA NITROGEN 23.8 mg/dL (9-20); CALCIUM 8.83 mg/dL (8.4-10.2); CARBON DIOXIDE 31.2 mmol/L (22-30.0); CHLORIDE 102.6 mmol/L (98-107); CREATININE 0.79 mg/dL (0.60-1.10); GLUCOSE 125.1 mg/dL (74-106); POTASSIUM 3.81 mmol/L (3.5-5.1); SODIUM 139.4 mmol/L (134.5-145); TOTAL PROTEIN 6.98 g/dL (6.3-8.2)
[2021-08-26] MEDS: TYLENOL PO PRN (06:45)
[2021-08-26] MEDS ORDERED: DECADRON IM ONE (08:20)
[2021-08-26] MEDS ORDERED: MICRO-K CAP PO SCH (08:30)
--- NOTE | 2021-08-26 08:47 | PCM.PROG ---
Attending Provider: ATTENDING PROVIDER: Dr. MILAGROS MIRELES This patient is seen with Yu Mauricio, Nurse Practitioner. DATE OF SERVICE: 08/26/21 SUBJECTIVE: This 66 year old /WHITE M was hospitalized 08/25/21. No syncopal episode in the night. CT and Carotid scans were both normal. Declined Zanaflex last night for the neck spasm. REVIEW OF SYSTEMS: CONSTITUTIONAL: No night sweats. No fatigue, malaise, lethargy. No fever or chills. HEENT: Eyes: No visual changes. No eye pain. No eye discharge. ENT: No runny nose. No epistaxis. No sinus pain. No odynophagia. No congestion. Left side neck pain. RESPIRATORY: No cough, no congestion. No hemoptysis. No shortness of breath. CARDIOVASCULAR: No angina symptoms. No CHF symptoms. No atypical chest pain for CAD. No palpitations. No orthopnea.. GASTROINTESTINAL: No abdominal pain. No nausea or vomiting. No diarrhea or constipation. No hematemesis. No hematochezia. GENITOURINARY: No urgency. No frequency. No dysuria. No hematuria. No obstructive symptoms. No discharge. No pain. No significant abnormal bleeding. MUSCULOSKELETAL: No musculoskeletal pain; no joint swelling. NEUROLOGICAL: Awake, alert, oriented to time, place and person. No headache. No neck pain. No syncope. No seizures. No dizziness. PSYCHIATRIC: Not anxious. No depression. No suicidal thoughts. No homicidal thoughts. SKIN: No rash. No lesions. No wounds. ENDOCRINE: No unexplained weight loss. No weight gain. HEMATOLOGIC/LYMPHATIC: No anemia. No purpura. No petechiae. No prolonged or excessive bleeding. No palpable lymph nodes. PHYSICAL EXAMINATION: GENERAL: The patient is awake, alert and oriented, lying in bed in no distress. VITAL SIGNS: Temperature 97.6 F, Pulse 72, Respiratory Rate 18, BP 115/73, Puls e Ox 96% HEENT: Head normocephalic, atraumatic. Eyes: Extraocular muscles are intact. Pupils are equal, round and reactive to light and accommodation. Ears: No lesions. Nose appeared normal. Throat: No exudate or erythema. NECK: Supple. No JVD, no carotid bruit. No lymphadenopathy or thyromegaly. LUNGS: Diminished breath sounds. Clear to auscultation. Percussion note normal. Chest symmetrical. HEART: S1, S2, no S3. No murmurs. No cyanosis or clubbing. No ascites. Pulses: Dorsalis pedis and posterior tibial pulses +1 to +2 both sides. ABDOMEN: Soft. Non-tender. Bowel sounds active. No CVA tenderness. No mass felt. EXTREMITIES: No edema. Full range of motion of all extremities, equal. NEUROLOGIC: No focal deficit. Cranial nerves II through XII are grossly intact. No headache. No double vision. SKIN: Not dry. Intact. Turgor-normal. LYMPHATIC: No palpable lymph nodes/no lymphedema. MUSCULOSKELETAL: Normal joints with no swelling. Muscle tone is normal. LAB REVIEW: 08/26/21 04:49 08/26/21 04:49 08/26/21 04:49: Sodium 139.4, Potassium 3.81, Chloride 102.6, Carbon Dioxide 31.2 H, Anion Gap 9.41, BUN 23.8 H, Creatinine 0.79, Estimated GFR (MDRD) 98.00, BUN/Creatinine Ratio 30.12, Glucose 125.1 H D, Calcium 8.83, Total Bilirubin 0.53, AST 39.8, ALT 37.6, Alkaline Phosphatase 115.0 D, Total Protein 6.98, Albumin 4.12, Globulin 2.86, Albumin/Globulin Ratio 1.44 08/26/21 04:49: WBC 4.60, RBC 4.58 L, Hgb 13.0 L, Hct 40.1 L, MCV 87.6, MCH 28.4, MCHC 32.4, RDW Coeff of Lilibeth 13.4, Plt Count 246, Immature Gran % (Auto) 0.4, Neut % (Auto) 58.5, Lymph % (Auto) 26.3, Teller % (Auto) 10.2 H, Eos % (Auto) 3.9, Baso % (Auto) 0.7, Neut # (Auto) 2.7, Lymph # (Auto) 1.2, Teller # (Auto) 0.5, Eos # (Auto) 0.2, Baso # (Auto) 0.0, Immature Gran # (Auto) 0.0 08/25/21 23:45: Total Creatine Kinase 67.7, Troponin I 0.020 08/25/21 16:00: Urine Color Yellow, Urine Clarity Clear, Urine pH 5.5, Ur Specific [place] 1.020, Urine Protein Negative, Urine Glucose (UA) 2+ H, Urine Ketones Negative, Urine Blood Negative, Urine Nitrite Negative, Urine Bilirubin Negative, Urine Urobilinogen 2.0 H, Ur Leukocyte Esterase Negative, Ur Squamous Epith Cells Not present 08/25/21 15:55: Total Creatine Kinase 74.3, Troponin I < 0.012 08/25/21 15:55: Sodium 140.5, Potassium 4.46, Chloride 106.0, Carbon Dioxide 25.8, Anion Gap 13.16, BUN 25.5 H, Creatinine 0.83, Estimated GFR (MDRD) 92.00, BUN/Creatinine Ratio 30.72, Glucose 184.1 H, Calcium 8.92, Total Bilirubin 0.57, AST 36.8, ALT 38.8, Alkaline Phosphatase 143.7 H, Total Protein 7.20, Albumin 4.34, Globulin 2.86, Albumin/Globulin Ratio 1.51 08/25/21 15:55: WBC 6.55, RBC 4.72, Hgb 13.7 L, Hct 40.7 L, MCV 86.2, MCH 29.0, MCHC 33.7, RDW Coeff of Lilibeth 13.2, Plt Count 268, Immature Gran % (Auto) 0.5, Neut % (Auto) 68.8, Lymph % (Auto) 17.4, Teller % (Auto) 9.6, Eos % (Auto) 2.9, Baso % (Auto) 0.8, Neut # (Auto) 4.5, Lymph # (Auto) 1.1, Teller # (Auto) 0.6, Eos # (Auto) 0.2, Baso # (Auto) 0.1, Immature Gran # (Auto) 0.0 08/25/21 12:49: Adenovirus (PCR) Not detected, B. pertussis DNA (PCR) Not detected, B.parapertussis DNA PCR Not detected, C. pneumoniae DNA (PCR) Not det ected, Coronavirus OC43 (PCR) Not detected, Coronavirus HKU1 (PCR) Not detected, Coronavirus 229E (PCR) Not detected, Coronavirus NL63 (PCR) Not detected, Human Metapneumovir PCR Not detected, Influenza Type A (PCR) Not detected, Influenza B (RT-PCR) Not detected, M. pneumoniae (PCR) Not detected, Parainfluenza 1 (PCR) Not detected, Parainfluenza 2 (PCR) Not detected, Parainfluenza 3 (PCR) Not det ected, Parainfluenza 4 (PCR) Not detected, RSV (PCR) Not detected, Entero/Rhino (PCR) Not detected, SARS-CoV-2 (PCR) Not detected ASSESSMENT: Please see below. 1. Syncopal episode at home 2. Neck pain 3. Diabetes Mellitus type II 4. Dilated cardiomyopathy PLAN: 1. 1cc Decadron 2. 2D echo echo 3. Will likely do 24 hour Holter monitor at discharge 4. 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 Plan and coordination of the patient's care discussed in the presence of Shampoo Assistant and nurse. SCRIBED BY: CRYSTAL BRADLEY Training Systems Officer scribed while in presence of service performed by Dr. Mireles/Yu Mauricio APRN on 08/26/21 (0800)
[2021-08-26] MEDS ORDERED: BENICAR PO SCH (09:00)
[2021-08-26] MEDS ORDERED: FLOMAX PO SCH (09:00)
[2021-08-26] MEDS ORDERED: NON-FORMULARY MEDICATION (Fluticasone-Umeclidin-Vilanter [Trelegy Ellipta] 100-62.5-25 mcg IH SCH (09:00)
[2021-08-26] MEDS ORDERED: IMDUR PO SCH (09:00)
[2021-08-26] MEDS: LOPRESSOR PO SCH (09:00)
[2021-08-26] MEDS ORDERED: MULTIVITAMIN TABLET PO SCH (09:00)
[2021-08-26] MEDS ORDERED: PRILOSEC PO SCH (09:00)
[2021-08-26] MEDS: NEURONTIN PO SCH (09:00)
[2021-08-26] MEDS ORDERED: HYDROCHLOROTHIAZIDE PO SCH (09:00)
[2021-08-26] MEDS: LASIX TAB PO SCH (09:01)
[2021-08-26] MEDS: ELIQUIS PO SCH (09:06)
[2021-08-26] MEDS: LEVEMIR SUBCUT SCH (09:09)
[2021-08-26] MEDS: HUMALOG SUBCUT SCH ×2 (09:09→12:22)
[2021-08-26] MEDS ORDERED: ZANAFLEX PO ONE (09:56)
[2021-08-26] MEDS ORDERED: TORADOL IVP ONE (09:56)
[2021-08-26] MEDS: HUMULIN R SUBCUT PRN (12:25)
--- NOTE | 2021-08-26 12:44 | HP ---
DATE OF SERVICE: 08/25/2021 REASON FOR HOSPITALIZATION/HISTORY OF PRESENT ILLNESS: " I don't feel right." Times three weeks with neck pain/headaches. Having muscle spasms off and on. He had been lifting and digging. He has an episode this morning-flet like heart stopped, almost passed out. PAST MEDICAL HISTORY/PAST SURGICAL HISTORY: Metabolic syndrome Recurrent gout COPD Diabetes Mellitus type II CHF Interstitial edema 10/05 Atrial fibrillation with RVR- Cardioversion- Eliquis BPH ED Noncompliance with medication, diet and lifestyle Neuropathy Hypertension/LVH Dyslipidemia Sleep apnea-CPAP Fatty liver History of pancreatitis Dilated cardiomyopathy GERD Status post cholecystectomy SVT Cath 04/04 [place]. REVIEW OF SYSTEMS: CONSTITUTIONAL: No fever, Fatigue. HEENT: No sinus drainage, no sore throat. RESPIRATORY: No cough, no congestion. CARDIOVASCULAR: No atypical chest pain for coronary artery disease. No angina, CHF symptoms and shortness of breath. Palpations. GASTROINTESTINAL: No melena or abdominal pain. No GERD. GENITOURINARY: No hematuria, no prostatism, no polyuria. TERRAZZO INSTALLER: Blackout, Dizziness, Headache, no double vision. MUSCULOSKELETAL: Osteoarthritis pain, no joint swelling. ENDOCRINE: No weight loss, no weight gain. SKIN: Not dry, no rash. PSYCHIATRIC: Not anxious, no depression, no suicidal thoughts, no homicidal thoughts. SOCIAL HISTORY: Marital Status: . Alcohol Usage: No. Tobacco Usage: Quit. MEDICATIONS: 1st and 2nd COVID 12/08 [place] [facility]- Booster Symbicort daily Metformin 500mg BID Flomax 0.4mg daily Multivitamin daily Benicar 40/12.5mg daily Levemir 100mg BID Lasix 40mg daily K-tab 10meq daily Lipitor 10mg PO daily Neurontin 600mg BID Eliquis 5mg BID Metoprolol tartrate 50mg BID Isosorbide 30mg daily Testosterone Trulicity 1.25mg weekly Humalog 10 units with meals Omeprazole 20mg BID ALLERGIES: Morphine Januvia Metformin PHYSICAL EXAMINATION: V/S: Pulse 77, Blood pressure 150/80, temperature 97.7, pulse ox 94%. BMI 40.3, height 6'1 and weight 289.2. GENERAL APPEARANCE: Oriented times three. HEENT: Normal. NECK: No JVP, no bruits. RESPIRATORY: Diminished breath sounds. CARDIOVASCULAR: S1, S2, no S3, no murmur. Regular. No cyanosis, clubbing. No ascites. GI/ABDOMEN: No tenderness. Bowel sounds are active. EXTREMITIES: Trace edema, pulses +1, equal. TERRAZZO INSTALLER: Deep tendon reflexes, sensory, motor and gait all normal. RECTAL: 05/07 (0.3). 07/04/[address] Stroud. ASSESSMENT: 1. Syncope 2. Neck pain 3. Palpitations 4. Metabolic syndrome 5. Recurrent gout 6. COPD 7. Diabetes Mellitus type II 8. CHF 9. Interstitial edema 10/05 10.Atrial fibrillation with RVR- Cardioversion- Eliquis 11.BPH 12.ED 13.Noncompliance with medication, diet and lifestyle 14.Neuropathy 15.Hypertension/LVH 16.Dyslipidemia 17.Sleep apnea-CPAP 18.Fatty liver 19.History of pancreatitis 20.Dilated cardiomyopathy 21.GERD 22.Status post cholecystectomy 23.SVT 24.Cath 04/04 [place]. PLAN: 1. Admit 2. Routine telemetry orders 3. CBC and CMP now and daily 4. Stat Bilateral carotid scan 5. Chest x-ray 6. CT brain with and without today-NPO (now) 7. Urinalysis 8. Continue home medications 9. X-ray of L spine 10.Sliding scale insulin coverage 11.Zanaflex 4mg PO QHS 12. 2D echo TIME SPENT: More than 70 minutes. MTDD
--- NOTE | 2021-08-27 08:02 | ECHO2D ---
Date of Exam: 08/26/2021 Ordering Physician: DR. MILAGROS MIRELES Room #: 105 Reason for Echo: PALPITATIONS, DM2, HTN M-Mode Normal Adult Results LV Dimensions Normal Adult Results AoV Opening excursions >1.6 >1.6 LVEDD-base- 3.5-5.8 4.1 Ao root dimensions 2.0-3.7 3.4 LVESD-base- 3.1-4.6 L. Atrium dimensions 1.9-3.8 5.3 Post. Wall thickness 0.8-1.1 1.5 IV septum (thickness) 0.7-1.2 1.7 Post. Wall excursion 0.72-1.3 NORMAL Septal motion 0.8 Systolic motion R. Ventricular cavity 1.5-2.0 NORMAL LVEF 60% 78% Paradoxical septal wall motion NORMAL 2-D : 2-D M Mode Echocardiogram was performed using apical four chamber and left parasternal long and short axis views. Mitral, tricuspid and aortic valves appear to be normal. Contractility of the left ventricle seems to be normal, so is the cavity size. ENLARGED LEFT ATRIAL CAVITY SIZE. Aortic root appears to be normal. There is no pericardial effusion. There is no thrombus noted in the left ventricle or left atrial cavity. COLOR FLOW: MODERATE AORTIC REGURGITATION M-MODE: MV: NORMAL AV: NORMAL TV: NORMAL PV: CHAMBER SIZE: ENLARGED LEFT ATRIAL CAVITY WALL MOTION: STIFF MILDLY HYPOKINETIC SEPTUM PERICARDIUM: INTERPRETATION: 1. MODERATE LEFT VENTRICULAR HYPERTROPHY WITH ENLARGED LEFT ATRIAL CAVITY (5.3CM) 2. MILDLY HYPOKINETIC STIFF SEPTUM--NORMAL EJECTION FRACTION 3. NORMAL VALVES 4. MODERATE AORTIC REGURGITATION MTDD
--- NOTE | 2021-08-27 10:00 | SSS ---
DATE OF SERVICE: 08/26/2021 REASON FOR ADMISSION: OBSERVATION "not feeling right" Syncope, neck pain and palpitations. HISTORY OF PRESENT ILLNESS: Neck pain and headache times three weeks. Muscle spasms in neck "off and one" [place] like heart stopped and almost passed out at home 08/25. REVIEW OF SYSTEMS: CONSTITUTIONAL: No night sweats. Fatigue. Weakness. No fever or chills. HEENT: Eyes: No visual changes. No eye pain. No eye discharge. ENT: No runny nose. No epistaxis. No sinus pain. No sore throat. No odynophagia. No ear pain. No congestion. RESPIRATORY: No cough, no congestion. No hemoptysis. No shortness of breath. CARDIOVASCULAR: No angina symptoms. No CHF symptoms. No atypical chest pain for CAD. Palpitations and felt like heart stopped. No orthopnea. GASTROINTESTINAL: No abdominal pain. No nausea or vomiting. No diarrhea or constipation. No hematemesis. No hematochezia. GENITOURINARY: No dysuria. No hematuria. No obstructive symptoms. No discharge. No pain. No significant abnormal bleeding. MUSCULOSKELETAL: No musculoskeletal pain. No joint swelling. NEUROLOGICAL: Awake, alert, oriented to time, place and person. Headache. Neck pain. Near syncope. No seizures. No dizziness. PSYCHIATRIC: Not anxious. No depression. No suicidal thoughts. No homicidal thoughts. SKIN: No rash. No lesions. No wounds. ENDOCRINE: No unexplained weight loss. No weight gain. HEMATOLOGIC/LYMPHATIC: No anemia. No purpura. No petechiae. No prolonged or excessive bleeding. No palpable lymph nodes. PAST HISTORY: COPD Diabetes Mellitus type II CHF Metabolic syndrome Atrial fibrillation Cardioversion BPH ED Hypertension LVH Dyslipidemia Sleep apnea Fatty liver Dilated cardiomyopathy GERD Cholecystectomy Heart Cath PERSONAL/FAMILY HISTORY/SOCIAL HISTORY: The patient is . Independent of ADL's. Father had Heart disease and diabetes. The patient is a non-smoker. No alcohol use. Uses C-pap. Full Code. PHYSICAL EXAMINATION: GENERAL: The patient is a 66 year old male. VITAL SIGNS: Height 6ft, weight 288, BMI 39, temperature 96.9, pulse 79, respiratory rate 18, oxygen saturation 96% on room iar. blood pressure 157/77. HEENT: Head normocephalic, atraumatic. Eyes: Extraocular muscles are intact. Pupils are equal, round and reactive to light and accommodation. Ears: No lesions. Nose appeared normal. Throat: No exudate or erythema. NECK: Supple. No JVD, no carotid bruit. No lymphadenopathy or thyromegaly. LUNGS: Clear to auscultation. Percussion note normal. Chest symmetrical. HEART: S1, S2, no S3. No murmurs. No cyanosis or clubbing. No ascites. Pulses: Dorsalis pedis and posterior tibial pulses +1 to +2 bilaterally. ABDOMEN: Soft. Nontender. Bowel sounds active. No CVA tenderness. No mass felt. EXTREMITIES: No edema. Full range of motion of all extremities, equal. NEUROLOGIC: No focal deficit. Cranial nerves II through XII are grossly intact. No headache, no double vision or headache. SKIN: Not dry. Intact. Turgor - normal. LYMPHATIC: No palpable lymph nodes/no lymphedema. MUSCULOSKELETAL: Normal joints with no swelling. Muscle tone is normal. EDUCATION CARRIED OUT ABOUT: Diabetes Mellitus and CHF Old/present records reviewed: Yes Office records reviewed: Yes. ALLERGIES: Januvia Morphine MEDICATIONS: Symbicort Metformin Flomax Multivitamin Benicar HCT Levemir Lasix K-tab Lipitor Neurontin Eliquis Metoprolol tartrate Isosorbide Trulicity Omeprazole Humalog LABS/EKG'S/X-RAY/ECHO/ABG: WBC 6.55, hgb 13.7, cht 40.7, plt count 268. Sodium 140.5, potassium 4.46, Chloride 106, bicarb 25.8, BUN 25.5, creatinine 0.83 and glucose 184. U/A 2+ glucose. CPK, Troponin within normal limits times two. Chest x-ray chronic lung findings. Carotid ultrasound no significant stenosis. CT brain-Normal study. C- Spine no fracture. Degenerative changes noted. PROGRESS NOTES: See EMR. Case Discussed with Attending Physician: Case Discussed with Family: DIAGNOSES: 1. Syncope 2. Palpitation 3. Dilated Cardiomyopathy 4. Marked LVH 5. Obesity RECOMMENDATIONS/PLAN: 1. Discharge home today with Holter Monitor 2. Make appointment to see Dr. Hickey 3. Appointment to see Dr. Escobar/Yu Mauricio APRN on September 02 at 2pm 4. Continue all home medications 5. Return Holter tomorrow ( will bring Holter at 9:30)- The patient will remove HOlter and return. 6. Hold Metformin today and resume on 08/27 with PM (supper meal) 7. Appointment with Dr. Hickey/Gena PALACIO on August 28 at 8:15am. TIME SPENT: More than 70 minutes. HAYDER
--- NOTE | 2021-08-28 09:04 | HOLTER ---
PATIENT INFORMATION AND COMMENTS Attending Physician: DR. MILAGROS MIRELES Indications: PALPITATIONS __ Patient Medications: OMEPRAZOLE, ATORVASTATIN, LASIX, TRELEGY ELLIPTA, ELIQUIS, SYMBICORT, TRULICITY, GABAPENTIN, ISOSORBIDE, HUMALOG, LEVEMIR, HCTZ, METOPROLOL, METFORMIN, TAMSULOSIN, KLOR-CON __ Pre-procedure Summary: Protocol: Standard Heart Rate Started: 08/26/2021 1219 Minimum: 62 BPM Weight: 288 LBS Ended: 08/27/2021 1000 Maximum: 119 BPM Height: 72" Duration: 22 HOURS Average: 74 BPM _ INTERPRETATIONS/OBSERVATIONS: 1. BASIC RHYTHM: SINUS RATE 60 BPM TO 120 BPM, AVERAGE 74 BPM 2. PAC'S FREQUENT AT TIMES--5% OF BEATS SCANNED, FEW SHORT RUNS OF PAT/SVT-3 TO 6 BEATS NOTED 3. FEW /RARE PVC'S --ISOLATED 4. NO ST- T WAVE CHANGES FROM BASELINE 5. ACTIVITY LOG NOT AVAILABLE MTDD
--- NOTE | 2021-08-28 11:44 | PN ---
DATE OF SERVICE: 08/26/2021 SUBJECTIVE: The patient was seen and examined with the Nurse Practitioner. The patient's condition has improved. No blacking out. No chest pain. Feeling a lot better. He wants to go home. The patient had an echo done which showed moderate to severe LVH with normal LV contractility, still left ventricle noted especially the septal wall. Ejection fraction is normal. The patient is moderate aortic regurgitation. Two years ago the patient had cardiac cath done which was practically negative for coronary artery disease. The patient is followed by Dr. Hickey who is a tilting saw operator. The patient had cardioversion done for atrial fibrillation. His LA cavity size was normal 5cm. Again the patient was counseled for obesity to lose weight. Diet discussed. The patient is being followed by motor vehicle escort driver in [place]. Noncompliant of medications, recommendations and lifestyle. Advised the patient to continue the medications as before, no change. Followup with Dr. Hickey tomorrow. All the medical problems discussed with the also. The patient was under observation. The patient has Holter Monitor applied. Telemetry monitoring no significant arrhythmias were noted. TIME SPENT: More than 30 minutes. Plan and coordination of the patient's care discussed in the presence of nurse. HAYDER
--- NOTE | 2021-08-28 11:44 | PN ---
08/25/2021: Level 5 08/26/2021: D as in discharge MTDD
--- NOTE | 2021-08-28 12:46 | PN ---
DATE OF SERVICE: 08/25/2021 SUBJECTIVE: The patient was seen and examined in the office with Nurse Practitioner. Plan for management was formulated. He was COVID negative. Hospitalized with routine telemetry orders. He will undergo carotid scan which reported as no hemodynamically significant blocked arteries. CT scan of the head did not show any acute findings. All reports discussed with the patient in the room. was present. TIME SPENT: More than 30 minutes. Plan and coordination of the patient's care discussed in the presence of nurse. HAYDER
== END 2021-08-26 13:46 | disposition home or self-care (01) ==
LOC: LAB 12:30 → MEDSURG A 15:02 → INTOOBSV 15:02
PROVIDERS: ADMIT Internal Medicine; ATTEND Internal Medicine
DX: N40.1 Benign prostatic hyperplasia with lower urinary tract symptoms; M54.2 Cervicalgia; I48.91 Unspecified atrial fibrillation; R00.1 Bradycardia, unspecified; K21.9 Gastro-esophageal reflux disease without esophagitis; E11.9 Type 2 diabetes mellitus without complications; Z79.01 Long term (current) use of anticoagulants; J44.9 Chronic obstructive pulmonary disease, unspecified; I42.0 Dilated cardiomyopathy; G47.33 Obstructive sleep apnea (adult) (pediatric); I50.9 Heart failure, unspecified; Z20.822 Contact with and (suspected) exposure to COVID-19; K76.0 Fatty (change of) liver, not elsewhere classified; R55 Syncope and collapse; R00.2 Palpitations; E78.5 Hyperlipidemia, unspecified; Z87.19 Personal history of other diseases of the digestive system